=== PATIENT | male | born 1955 | race Caucasian/White ===

== ENCOUNTER 2019-10-15 11:26 | Outpatient (CLI) | payer OTHER, SELFPAY ==
--- NOTE | 2019-10-15 11:34 | US_ITS ---
WS: [id number] TESTICULAR ULTRASOUND HISTORY: ENLARGED TESTICLE/L HYDROCELE COMPARISON: 06/14/2018 TECHNIQUE: Real-time and color Doppler imaging or utilized to perform a testicular ultrasound. Right testicle: 6.0 cm x 3.3 cm x 2.6 cm. Normal size and echogenicity. No mass or torsion. Normal color Doppler is present throughout. Systolic and diastolic velocities are both present. No significant hydrocele. Right epididymis: Normal epididymis with no increased vascularity. Left testicle: 6.8 cm x 3.2 cm x 3.0 cm. Normal size and echogenicity. No mass or torsion. Normal color Doppler is present throughout. Systolic and diastolic velocities are both present. Very large simple LEFT hydrocele. Hydrocele is displacing the testicle posteriorly within the scrotum . There is still normal vasculature within the displaced LEFT testicle. Hydrocele has increased in si ze since 2019. Left epididymis: Normal epididymis with no increased vascularity. US/US scrotum 99921 IMPRESSION: 1. Large simple LEFT hydrocele, progressive enlargement since 06/14/2018. 2. No testicular mass or torsion.
== END 2019-10-15 11:27 | disposition home or self-care (01) ==
LOC: RAD 11:31
PROVIDERS: PCP Nurse Practitioner Family; Visit Provider Nurse Practitioner Family
DX: N50.89 Other specified disorders of the male genital organs (principal); N43.3 Hydrocele, unspecified
CPT/HCPCS: 76870

== ENCOUNTER → 2019-10-19 08:41 | Outpatient (BNVA) | payer OTHER, SELFPAY | PROVIDERS: PCP Nurse Practitioner Family; Visit Provider Urology | DX: N43.3 Hydrocele, unspecified (principal) | CPT/HCPCS: 81001 ==

== ENCOUNTER 2019-10-25 11:26 | Day surgery (SDC) | payer OTHER, SELFPAY ==
[2019-10-23 10:22] VITALS: BMI 28.7
--- NOTE | 2019-10-23 10:40 | P.ANESASSM_ITS ---
Pre-Anesthetic Assessment Pre-Anesthetic Assessment: Height/Weight: Height 1.83 m Weight 96.162 kg Preop Diagnosis: Symptomatic left hydrocele Proposed Procedure: Operation Date: 10/25/19 14:15 Proposed Procedures p Hydrocele Repair 71149 N43.3(Left) - Edvin Serrano MD Familial anesthetic complications: None Social: Social History: No alcohol and No tobacco Exam: Pre-Anes Outpt Exam: alert, oriented x 3, clear to auscultation bilaterally and regular rate & rhythm Airway: Cervical ROM: WNL MP: 2 Additional comments: implants Anesthetic Plan: ASA status: 1 Anesthesia: General Risk of > 500 ml blood loss (7ml/kg in children): No PFSH Anesthesia PFSH: Medical History Hydrocele, left Surgical History H/O oral surgery Hx of lymph node excision Family History Mother Cancer colon cancer Father CAD (coronary artery disease) Cancer pancreatic cancer Social History Smoking and tobacco status: never smoked Alcohol intake: never Adopted: No Caregiver/support person: No Lives independently: No Household members: spouse Marital status: Current occupational status: employed History of recent travel: No Current gender identity: Male Data Anesthesia Cardiac Studies: No Data to Display
[2019-10-25] VITALS (8 sets, daily range): BP systolic 109–129; BP diastolic 75–95; PULSE 60–109; RESP 16–70; TEMP 36.1–36.8; O2SAT 93–100
[2019-10-25] MEDS: sodium chloride 0.9% 1,000 ML 30 ML IV (11:50)
--- NOTE | 2019-10-25 12:30 | W.PM.OPSUD ---
Surgery/Procedure H&P Update DATE OF PROCEDURE: October 25, 2019 DATE H&P PERFORMED: 10/19/19 H&P UPDATE INFORMATION: I have reviewed H&P completed within last 30 days, I have examined patient prior to procedure, No changes to prior documentation and H&P is in [facility] EMR on date indicated PREOP DIAGNOSIS: Symptomatic left hydrocele PLANNED PROCEDURE: Operation Date: 10/25/19 13:00 Proposed Procedures p Hydrocele Repair 90501 N43.3(Left) - Edvin Serrano MD
--- NOTE | 2019-10-25 12:31 | PM.OP ---
Operative Report Date of procedure: October 25, 2019 Pre-op Diagnosis: Symptomatic left hydrocele Post-op diagnosis: same Procedure Done: Left hydrocele repair: Surgeon: Zach Anesthesia: General Estimated blood loss: Minimal Urine output: Not measured Complications: None Findings: Very large left hydrocele with normal-appearing testicle. Condition: stable Disposition: PACU Brief History: Vik is a delightful 64-year-old white male with a history of gradually progressing left hydrocele now significantly imposing restrictions on his activity. Not overtly painful but discomfort is noted when he crosses his legs and does increased activity. Can no longer ride a bicycle because of it. Preop work-up included an ultrasound that showed normal testicles. Physical exam showed no evidence of a hernia. The hydrocele was very large and extending into the proximal scrotum toward the external ring. Admitted now for outpatient hydrocele repair. Procedure: After routine preoperative evaluation examination and obtaining of informed consent he was taken to the operating suite on 10/25/2019 where general anesthesia was administered without difficulty after appropriate timeout was performed, SCDs confirmed to be functioning, preoperative antibiotics administered, beta-rosana protocol confirmed. Positioned on the operative table in supine position pain careful attention to avoiding pressure points. Midline scrotal incision was made over the left scrotal contents taken down through skin subcutaneous tissue down to the tunica vaginalis. The tunica vaginalis was dissected from the surrounding scrotal tissues. The tunica vaginalis was opened and a large amount of straw-colored fluid was drained. The incision was extended proximally to open up the entire spectrum of the hydrocele. A significant portion of the hydrocele was excised and then the edges were everted over the testicle and a running locking closure was performed on the backside with an absorbable suture for hemostasis of the cut edges. Meticulous hemostasis was obtained. Wound was irrigated and then closed in 2 layers utilizing 3-0 Vicryl for the subcutaneous and then 4-0 running subcuticular Vicryl for the skin closure with sterile surgical skin adhesive applied over the wound. Wound was infiltrated with 0.25% Marcaine. After drying, a sterile Telfa dressing, fluff dressings and scrotal support were applied. Tolerated procedure well without complications and was awakened in the operating room and returned to the recovery in stable condition. PLANS: 1. Maintain scrotal support for least a week 2. Follow-up in approximately 4 weeks for postop check. 3. Reviewed perioperative limitations.
--- NOTE | 2019-10-25 13:27 | SUR.OPER ---
NOTIFIED VIA CELL PHONE ON PROGRESS OF SURGERY.
--- NOTE | 2019-10-25 14:13 | SUR.PHASEI ---
1410 PT TO OPS AT THIS TIME. DENIES PAIN. TOLERATING ICE CHIPS. DRESSING, CDI
--- NOTE | 2019-10-25 14:14 | SUR.PHASEI ---
1349 PATIENT TO PACU AT THIS TIME FROM OR. NO DISTRESS. RR EVEN AND UNLABORED. SCROTAL DRESSING, CDI.
== END 2019-10-25 14:55 | disposition home or self-care (01) ==
PROVIDERS: PCP Nurse Practitioner Family; Visit Provider Urology
PROC: (CPT 55060; principal; 2019-10-25 13:00)
DX: N43.3 Hydrocele, unspecified (principal)
CPT/HCPCS: 55060; 12345; 88302; J0131; J1100; J1885; J2001; J2405; J2704; J2710; J2765; J3010; J3370; J3490; J7030; J7050

== ENCOUNTER → 2020-01-07 08:01 | Outpatient (BNVA) | payer OTHER, SELFPAY | PROVIDERS: PCP Nurse Practitioner Family; Visit Provider Urology | DX: N43.3 Hydrocele, unspecified (principal); S30.22XA Contusion of scrotum and testes, initial encounter; X58.XXXA Exposure to other specified factors, initial encounter | CPT/HCPCS: 81001 ==

== ENCOUNTER 2020-01-18 09:20 | Emergency (ER) | payer OTHER, SELFPAY ==
[2020-01-18] VITALS (8 sets, daily range): BP systolic 147–178; BP diastolic 97–110; PULSE 85–116; RESP 14–28; TEMP 36.3–36.8; O2SAT 95–98; BMI 25.7
--- NOTE | 2020-01-18 09:32 | XR_ITS ---
WS: [id number] Portable AP upright chest, 01/18/2020 Clinical Data: dyspnea/cough Comparison: None. Findings: No nodules, masses or effusions are seen. The heart is normal. The pulmonary vascularity is not increased. No pneumonia or pneumothorax is seen. XR/XR chest 1V portable [id number] Impression: Negative chest.
--- NOTE | 2020-01-18 09:32 | ECG_ITS ---
[facility] Test Date: 2020-01-18 Pat Name: Vik Jaramillo Department: Room: Gender: Male Ingot Passer: : 1955 Requested By: Paul Valerio Order Number: [id number] Herman MD: Ayad Severino M.D. Measurements Intervals [place] Rate: 89 P: 50 UT: 141 QRS: -8 QRSD: 87 T: 29 QT: 363 QTc: 444 Interpretive Statements SINUS RHYTHM POSSIBLE LEFT ATRIAL ENLARGEMENT [-0.1mV P WAVE IN V1/V2] Compared to ECG 03/14/2018 04:55:32 Sinus bradycardia no longer present Electronically Signed On 01-18-2020 14:58:29 CDT by Ayad Severino M.D. [id number]
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
[2020-01-18] MEDS: ondansetron 2 mg/ML SDV 2 mL 4 MG IVP (09:41)
[2020-01-18] MEDS: morphine 4 mg/mL SDV 1 mL 8 MG IVP ×2 (09:46→10:53)
[2020-01-18] MEDS: tetanus-dipt-pertussis 0.5 mL SDV IM (09:47)
[2020-01-18 09:48] LABS: Basophils # 0.1 10^3/uL (0.0-0.1); Basophils % 0.6 %; Eosinophils # 0.2 10^3/uL (0.0-0.8); Eosinophils % 1.7 %; Hematocrit 44.9 % (42.0-52.0); Hemoglobin 14.8 g/dL (11.7-16.6); Lymphocytes # 2.6 10^3/uL (0.8-4.8); Lymphocytes % 29.8 %; Mean Corpuscular Hemoglobin 28.7 pg (28.0-34.0); Mean Platelet Volume 9.8 fL (7.4-10.4); Monocytes # 0.9 10^3/uL (0.2-0.9); Monocytes % 10.6 %; Neutrophils # 4.94 10^3/uL (1.8-7.7); Neutrophils % 56.7 %; Nucleated Red Blood Cells % 0 %; Platelet Count 294 10^3/cmm (130-400); Red Blood Count 5.16 10^6/uL (4.1-5.3); Red Cell Distribution Width 12.9 % (12.1-15.1); White Blood Count 8.7 10^3/uL (4.0-10.0)
[2020-01-18 10:04] LABS: Alanine Aminotransferase 27 U/L (0-41); Albumin Level 4.5 g/dL (3.5-5.2); Alkaline Phosphatase 75 IU/L (40-130); Anion Gap 18.1 (5-19); Aspartate Amino Transferase 26 U/L (0-40); Blood Urea Nitrogen 15 mg/dL (8-23); Calcium 9.2 mg/dL (8.5-10.5); Carbon Dioxide 22 mmol/L (22-29); Chloride 99 mmol/L (98-107); Globulin 3.3 g/dL (1.3-4.6); Glomerular Filtration Rate 97.3 mL/min (90-130); Glucose 131 mg/dL (65-115); Osmolality Calculated 278 mOsm/kg (285-295); Potassium 4.1 mmol/L (3.5-5.1); Sodium 135 mmol/L (136-145); Total Bilirubin 0.7 mg/dL (0.15-1.2); Total Protein 7.8 g/dL (6.6-8.7)
[2020-01-18] MEDS: mupirocin oint 22 gm 1 APPLIC TOPICAL (13:16)
== END 2020-01-18 13:41 | disposition home or self-care (01) ==
PROVIDERS: Emergency Provider Family Medicine; PCP Nurse Practitioner Family
DX: T22.092A Burn of unspecified degree of multiple sites of left shoulder and upper limb, except wrist and hand, initial encounter (principal); T20.07XA Burn of unspecified degree of neck, initial encounter; T20.00XA Burn of unspecified degree of head, face, and neck, unspecified site, initial encounter; X08.8XXA Exposure to other specified smoke, fire and flames, initial encounter; Z23 Encounter for immunization
CPT/HCPCS: 12345; 71045; 80053; 85025; 90471; 90715; 93005; 96374; 96375; 96376; 99283; J2270; J2405

== ENCOUNTER 2023-10-07 09:28 | Oncology outpatient (recurring) (ONCR) | payer MEDICARE, OTHER, SELFPAY ==
--- NOTE | 2023-09-15 11:40 | N.ONRAD NP_ITS ---
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 Here to address post operative resection bed radiation. Radiotherapy to date: Summary > No prior radiation therapy. Chief Complaint / History of Present Illness: He initially noted a small maybe 1 cetimeter lesion over his left lateral eyebrow in 01/2023. It then grew some and dramatically increased in size in 03/2024 and 04/2024. See by Dr Barrera. Biopsy done which by report revealed squamous cell carcinoma. PET/CT 06/13/2023 by report (and only available after patient was seen here with imaging not yet reviewed) : Lesion involving left anterior orbital region with an ulcerated soft tissue lesion measuring 2.2 cm in diameter with elevated SUV would be ???consistent with a primary tumor??? (SUVs not quantitated). Mediastinal lymph nodes hypermetabolic with SUVs of 4.9 and 5.5. Bilateral hilar lymph nodes with right hilum SUV of 6.9 and sub carinal lymph nodes with SUV of 5.9. (size of lymph nodes not in report). No cervical adenopathy seen. Head and neck CT at [facility] on 07/18/2023 by report revealed 2.7 x 1.4 cm enhancing soft tissue mass involving left lateral eyebrow. Possible involvement of left lateral lacrimal gland. No osseous erosion. Unchanged expansile lytic lesion left mandible not FDG avid on prior PET. Multiple mildly enlarged bilateral level 4 lymph nodes. Moderately FDG avid and indeterminate. Multiple prominent mediastinal lymph nodes with moderate FDG avidity with innumerable tiny bilateral upper lobe pulmonary nodules. CT chest confirmed these findings and was most consistent with sarcoidosis. Referred to surgical team at [place]. On 08/16/2023 he underwent comprehensive resection with right radial arm free flap reconstruction, left cervical alison dissection and superficial parotid resection. Path squamous cell carcinoma 3.5 cm with 1.4 cm depth of invasion, perineural invasion identified. No LVI. .Margins clear. Separately submitted margins also all clear. Parotid gland and all 40 sampled lymph nodes all uninvolved. Doing well post op. 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 Left eye lid progressively improving in function. Left forehead still inactive. Medical History: No history of collagen vascular disease. No previous radiation therapy. Social History: 30 years for second time. 2 children 2 step children . 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 No cigarette or alcohol use. Vital Signs: Performed on 09/14/2023 3:20 PM BMI - 27.579 kg/m2 (high), Height - 74 in, Weight - 214.8 lbs, Temperature - 97.9 f, Pulse - 87 /min, Respiration - 16 /min, O2 Sat - 98 %, Pain - 0, Fatigue - 0 and BP - 129/ 82 mm(hg). Physical Exam: Robust . Left free flap 5.5 x 3 cm over left eyebrow region well healed and vascularized. Left upper eye lid mobility intact. Left forehead paresis. Left neck incision well healed with generalized mild edema of left cheek region with no masses. Right radial forearm flap donar site and thigh STSG donor sites all well healed. Performance Status: 0 Pathology: See HPI. 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 Adjuvant radiation appropriate to enhance durability of local control. We will use preop CT and PET/CT imaging and fuse with planning CT scan to aid in accurate target delineation. These image sets have been requested and will be electronically transferred here. He is at some risk of lacrimal gland dysfunction as a result of treatment which could result in chronic dry eye syndrome. He has incidentally noted hilar and mediastinal adenopathy noted on the PET/CT report 06/13/2023 which was only available to me after the initial consult with him. This merits review and probable follow-up with repeat imaging to assess for interval change and may then need further assessment if persistence or progression of adenopathy is seen. Follow up CT chest at [place] 07/18/2023 favored sarcoidosis as the etiology. Signed by: 09/15/2023 11:37:57 AM <<Signature on File>> Time spent with patient: CPT Code: CPT Code:
--- NOTE | 2023-09-28 13:54 | ONCRAD EPV_ITS ---
Radiation Oncology Established Patient Visit Patient: Vik Jaramillo [id number] : 1955 Age: 68 Sex: Male Dictated by: Dr. Brooke Dobbs Date of Service: 09/28/2023 Referring Physician(s) : Pardeep Knight MD, Diego Barrera MD Diagnosis: Squamous cell carcinoma of the forehead Radiotherapy to Date: Simulation today Current History: Patient initially noticed a small dry area in January of last year. This progressed to a small bump. By March the bump had doubled in size but by April it had markedly increased in size mid May he visited at [facility] and a biopsy was done. From that point he went to several ENT physicians had multiple CT scans and PET scan and visited with surgeons at [facility]. He subsequently 15 August underwent surgical excision with neck dissection and graft placement. The pathological specimen had clear margins and all the lymph nodes were negative. The only negative factor was the specimen was positive for perineural invasion. He returns today to undergo simulation and make sure that is surgical site has healed appropriately. It has been about 6 weeks since his surgery. Current Medications: Allergies: Current Complaints / Review of Systems: . Vital Signs: BMI - 27.45 kg/m2 (high), Height - 74 in, Weight - 213.8 lbs, Temperature - 97.1 f, Pulse - 83 /min, Respiration - 16 /min, O2 Sat - 96 %, Pain - 0, Fatigue - 1 and BP - 139/ 86 mm(hg). Physical Exam: General: Alert and oriented x 3. No acute distress. HEENT: Normocephalic, atraumatic. Extraocular Movements Intact: Pupils Equal, Round, Reactive to Light. The neck incision appears to be nicely healed. The graft is also healed. It is pink in color. It does have hair growing on the graft. His eyelid moves normally. 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 Lungs: Respiratory rate is regular nonlabored .HEART: Regular rate and rhythm,. ABDOMEN: Nonprotuberant EXTREMITIES: No peripheral edema is identified. NEUROLOGIC alert and orient x 3. Gait and speech within normal limits Performance Status: 100 Lab: None pending. Pathology: Imaging: See HPI Impression: Stage T3 N0 M0 squamous of carcinoma of the forehead Plan at this point he is healed nicely from his surgery. Were ready to proceed with postop radiation. I reviewed with him the only negative factor being the perineural invasion. We did talk about his options would be to not do anything and follow-up closely. The other option is to proceed with the postop radiation in order to decrease the recurrence rate as low as possible. We talked about the difficulty if the cancer should recur in terms of any additional event intervention. We reviewed the simulation process. We discussed the daily treatment regiment. We discussed the risks and side effects both acute and long-term. At this point he is decided to undergo the postop radiation. He will undergo simulation today and will begin his treatments shortly thereafter. Signed by: 09/28/2023 1:53:48 PM <<Signature on File>> Time spent with patient:30 CPT Code: CPT Code:
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
== END 2023-10-07 23:59 | disposition home or self-care (01) ==
PROVIDERS: PCP Nurse Practitioner Family; Visit Provider Radiology Radiation Oncology
DX: Z51.0 Encounter for antineoplastic radiation therapy (principal); C44.329 Squamous cell carcinoma of skin of other parts of face
CPT/HCPCS: 77300; 77301; 77334; 77338; 77386; 99024; 99205

== ENCOUNTER 2023-10-28 07:40 | Oncology outpatient (recurring) (ONCR) | payer MEDICARE, OTHER, SELFPAY ==
--- NOTE | 2023-10-12 09:40 | ONCRAD TMN_ITS ---
Radiation Oncology Weekly Treatment Management Patient: lCint Virk MR#: [id number] : 1955> Attending Physician: Dr. Brooke Dobbs Date of Service: 10/11/2023 Fractions: 6 out of 25 Referring Physician(s) : Diagnosis: C44.329 - Squamous cell carcinoma of skin of other parts of face, Diagnosed 09/29/2023 (Active) Radiotherapy to date: Course: LT Eye 2023, Treatment Site: LT Eye 50Gy, Ref. ID: [id number], Energy: 6X, Dose/Fx (cGy): 200, #Fx: , Dose Correction (cGy): 0, Total Dose Delivered (cGy): 1,200, Start Date: 10/04/2023, Elapsed Days: 7 Reason for visit: The patient is being seen today as part of their regularly scheduled weekly on treatment visits to assess for acute toxicities from radiotherapy. Review of Systems: He has noticed no changes as yet. Vital Signs: Performed on 10/11/2023 2:34 PM BMI - 28.015 kg/m2 (high), Height - 74 in, Weight - 218.2 lbs, Temperature - 97.2 f, Pulse - 72 /min, Respiration - 16 /min, O2 Sat - 97 %, Pain - 0, Fatigue - 7 and BP - 130/ 87 mm(hg). Physical Exam: No changes on exam Imaging: Radiation therapy imaging related to accurate target localization (i.e. KV, MV and CBCT) was reviewed. Appropriate changes, if any, were made to ensure treatment accuracy. Plan: Will continue with his treatments as planned. I did send eyedrops for him to use if his eye should become irritated. We talked about how he is going to be going to [place] every 3 months for scans secondary to calcified granulomas in his lung. Signed by: Dr. Brooke Dobbs 10/12/2023 9:39:12 AM
--- NOTE | 2023-10-19 08:12 | ONCRAD TMN_ITS ---
Radiation Oncology Weekly Treatment Management Patient: Vik Jaramillo MR#: [id number] : 1955 Attending Physician: Dr. Brooke Dobbs Date of Service: 10/18/2023 Fractions: Referring Physician(s) : Diagnosis: C44.329 - Squamous cell carcinoma of skin of other parts of face, Diagnosed 09/29/2023 (Active) Radiotherapy to date: Course: LT Eye 2023, Treatment Site: LT Eye 50Gy, Ref. ID: [id number], Energy: 6X, Dose/Fx (cGy): 200, #Fx: , Dose Correction (cGy): 0, Total Dose Delivered (cGy): 2,200, Start Date: 10/04/2023, Elapsed Days: 14 Reason for visit: The patient is being seen today as part of their regularly scheduled weekly on treatment visits to assess for acute toxicities from radiotherapy. Review of Systems: He says he has not really noticed any substantial changes as yet. Vital Signs: Performed on 10/18/2023 3:54 PM BMI - 28.092 kg/m2 (high), Height - 74 in, Weight - 218.8 lbs, Temperature - 97.2 f, Pulse - 77 /min, Respiration - 16 /min, O2 Sat - 96 %, Pain - 0, Fatigue - 0 and BP - 136/ 92 mm(hg)(/high). Physical Exam: On exam the skin around the graft is just mildly erythematous and slightly hyperpigmented, his eye is clear without injection Imaging: Radiation therapy imaging related to accurate target localization (i.e. KV, MV and CBCT) was reviewed. Appropriate changes, if any, were made to ensure treatment accuracy. Plan: Will continue with his treatments as planned with careful monitoring of his eye and the conjunctivitis. Signed by: Dr. Brooke Dobbs 10/19/2023 8:10:40 AM
--- NOTE | 2023-10-26 08:29 | ONCRAD TMN_ITS ---
Radiation Oncology Weekly Treatment Management Patient: Vik Jaramillo MR#: [id number] : 1955 Attending Physician: Dr. Brooke Dobbs Date of Service: 10/25/2023 Fractions: 16 of Referring Physician(s) : Diagnosis: C44.329 - Squamous cell carcinoma of skin of other parts of face, Diagnosed 09/29/2023 (Active) Radiotherapy to date: Course: LT Eye 2023, Treatment Site: LT Eye 50Gy, Ref. ID: [id number], Energy: 6X, Dose/Fx (cGy): 200, #Fx: , Dose Correction (cGy): 0, Total Dose Delivered (cGy): 3,200, Start Date: 10/04/2023, Elapsed Days: 21 Reason for visit: The patient is being seen today as part of their regularly scheduled weekly on treatment visits to assess for acute toxicities from radiotherapy. Review of Systems: Only complaint today is he has noticed increased fatigue Vital Signs: Performed on 10/25/2023 3:36 PM BMI - 27.476 kg/m2 (high), Height - 74 in, Weight - 214 lbs, Temperature - 96.5 f, Pulse - 65 /min, Respiration - 16 /min, O2 Sat - 98 %, Pain - 0, Fatigue - 7 and BP - 140/ 86 mm(hg). Physical Exam: On exam the skin around the graft is mildly erythematous. The graft itself is a little more thomson. Conjunctiva is clear Imaging: Radiation therapy imaging related to accurate target localization (i.e. KV, MV and CBCT) was reviewed. Appropriate changes, if any, were made to ensure treatment accuracy. Plan: Will continue with his treatments as planned. He will continue to use the cream and eyedrops as needed Signed by: Dr. Brooke Dobbs 10/26/2023 8:27:53 AM
== END 2023-10-28 09:54 | disposition home or self-care (01) ==
PROVIDERS: PCP Nurse Practitioner Family; Visit Provider Radiology Radiation Oncology
DX: Z51.0 Encounter for antineoplastic radiation therapy (principal); C44.329 Squamous cell carcinoma of skin of other parts of face
CPT/HCPCS: 77336; 77386; 99024

== ENCOUNTER 2023-11-04 08:51 | Oncology outpatient (recurring) (ONCR) | payer MEDICARE, OTHER, SELFPAY ==
--- NOTE | 2023-11-02 09:02 | ONCRAD TMN_ITS ---
Radiation Oncology Weekly Treatment Management Patient: Clint Chery> MR#: [id number] : 1955> Attending Physician: Dr. Brooke Dobbs Date of Service: 11/01/2023 Fractions: Referring Physician(s) : Diagnosis: C44.329 - Squamous cell carcinoma of skin of other parts of face, Diagnosed 09/29/2023 (Active) Radiotherapy to date: Course: LT Eye 2023,Treatment Site: LT Eye 50Gy Ref. ID: [id number], Energy: 6X, Dose/Fx (cGy): 200, #Fx: , Dose Correction (cGy): 0, Total Dose Delivered (cGy): 4,200, Start Date: 10/04/2023, Elapsed Days: 28 Reason for visit: The patient is being seen today as part of their regularly scheduled weekly on treatment visits to assess for acute toxicities from radiotherapy. Review of Systems: Patient has noticed that the skin around the graft in the corner of his eye is gotten very erythematous and rodriguez a little just in the crease at the corner of his eye Vital Signs: Performed on 11/01/2023 3:56 PM BMI - 27.219 kg/m2 (high), Height - 74 in, Weight - 212 lbs, Temperature - 97.3 f, Pulse - 84 /min, Respiration - 18 /min, O2 Sat - 97 %, Pain - 0, Fatigue - 5 and BP - 123/ 83 mm(hg). Physical Exam: On exam his skin is erythematous and becoming darker. There is no moist or dry desquamation. Conjunctivitis clear Imaging: Radiation therapy imaging related to accurate target localization (i.e. KV, MV and CBCT) was reviewed. Appropriate changes, if any, were made to ensure treatment accuracy. Plan: We talked initially about using Silvadene but he is allergic to Bactrim so I sent a prescription steroid cream for him to use on this area. He only has 4 treatments remaining. Signed by: Dr. Brooke Dobbs 11/02/2023 9:01:06 AM
== END 2023-11-06 23:59 | disposition home or self-care (01) ==
PROVIDERS: PCP Nurse Practitioner Family; Visit Provider Radiology Radiation Oncology
DX: Z51.0 Encounter for antineoplastic radiation therapy (principal); C44.329 Squamous cell carcinoma of skin of other parts of face
CPT/HCPCS: 77336; 77386

== ENCOUNTER 2023-12-05 15:32 | Oncology outpatient (recurring) (ONCR) | payer MEDICARE, OTHER, SELFPAY ==
--- NOTE | 2023-11-08 09:12 | N.ONRD TS_ITS ---
Radiation Oncology Treatment Summary Patient: Vik Jaramillo MR#: [id number] : 1955 Age: 68 Sex: Male Dictated by: Dr. Brooke Dobbs Date of Service: 11/07/2023 Referring Physician(s) : Diagnosis: C44.329 - Squamous cell carcinoma of skin of other parts of face, Diagnosed 09/29/2023 (Active) Radiotherapy to Date: Course: LT Eye 2023, Treatment Site: LT Eye 50Gy, Ref. ID: [id number], Energy: 6X, Dose/Fx (cGy): 200, #Fx: 25 / 25, Dose Correction (cGy): 0, Total Dose Delivered (cGy): 5,000, Start Date: 10/04/2023, End Date: 11/07/2023, Elapsed Days: 34 Clinical Summary: The patient tolerated RT well. His skin became erythematous and the crease of his eye was increasingly irritated. Plan: End of treatment today. Continue on the above medication until the skin reaction resolves. Follow up in one month. Signed by: Dr. Brooke Dobbs>11/08/2023 9:11:14 AM <<Signature on File>>
--- NOTE | 2023-12-06 10:17 | ONCRAD EPV_ITS ---
Radiation Oncology Established Patient Visit Patient: Clint Chery [id number] : 1955> Age: 68> Sex: Male> Dictated by: Dr. Brooke Dobbs Date of Service: 12/05/2023 Referring Physician(s) : Diagnosis: C44.329 - Squamous cell carcinoma of skin of other parts of face, Diagnosed 09/29/2023 (Active) Radiotherapy to Date: Course: LT Eye 2023, Treatment Site: LT Eye 50Gy, Ref. ID: [id number], Energy: 6X, Dose/Fx (cGy): 200, #Fx: 25 / 25, Dose Correction (cGy): 0, Total Dose Delivered (cGy): 5,000, Start Date: 10/04/2023, End Date: 11/07/2023, Elapsed Days: 34 Current History: Patient returns for his first checkup having completed treatments on November 06. His skin is healed nicely. He has no complaints other than sometimes the corner of his eye is still somewhat irritated. He also notices that sometimes his eye becomes little irritated by the end of the day. Current Medications: Allergies: Current Complaints / Review of Systems: . Vital Signs: Performed on 12/05/2023 3:38 PM BMI - 26.372 kg/m2 (high), Height - 74 in, Weight - 205.4 lbs, Temperature - 97.3 f, Pulse - 77 /min, Respiration - 18 /min, O2 Sat - 97 %, Pain - 0, Fatigue - 0 and BP - 124/ 83 mm(hg). Physical Exam: General: Alert and oriented x 3. No acute distress. HEENT: The graft appears to be doing well. Is actually flatter than it was previously. The skin is healed nicely. The hypopigmentation is evening out as is the hyperpigmentation Performance Status: 100 Lab: None pending. Pathology: Primary, c44.329 - squamous cell carcinoma of skin of other parts of face, Diagnosed 09/29/2023 (active) . Imaging: See HPI Impression: Squamous of carcinoma of the skin Plan: He did have CTs done just 2 days after he completed his treatments. Will get him scheduled to have 1 of those done in 6 months. He will otherwise keep his other appointments in the next few months. I have asked him to call if any problems should arise in the interim. Signed by: 12/06/2023 10:15:51 AM <<Signature on File>> Time spent with patient: CPT Code: CPT Code:
== END 2023-12-07 23:59 | disposition home or self-care (01) ==
PROVIDERS: PCP Nurse Practitioner Family; Visit Provider Radiology Radiation Oncology
DX: C44.329 Squamous cell carcinoma of skin of other parts of face
CPT/HCPCS: 77336; 77386; 99024